=== PATIENT | female | born 1955 | race Caucasian/White ===

== ENCOUNTER 2019-12-14 07:55 | Outpatient (REF) | payer OTHER, SELFPAY ==
[2019-12-14 13:19] LABS: Chol HDL Ratio 3.84 mg/dL (0.0-4.40); Cholesterol 142 mg/dL (0-200); Glucose 199 mg/dL (65-115); HDL Cholesterol 37 mg/dL (60-100); LDL Cholesterol Calculated 86 mg/dL (50-129); LDL HDL Ratio 2.32 RATIO (0.00-3.22); Triglycerides 93 mg/dL (0-150)
[2019-12-14 13:46] LABS: Estmated Average Glucose 232; Hemoglobin A1C 9.7 % (4.0-6.0)
== END 2019-12-14 07:56 | disposition home or self-care (01) ==
LOC: LAB 07:55
PROVIDERS: Family Provider Family Medicine; Visit Provider Dermatology
DX: Z01.89 Encounter for other specified special examinations (principal)
CPT/HCPCS: 80061; 82947; 83036

== ENCOUNTER → 2022-05-02 16:58 | Outpatient (BNVA) | payer OTHER, SELFPAY | PROVIDERS: Family Provider Family Medicine; PCP Family Medicine; Visit Provider Registered Nurse Neonatal Intensive Care | DX: Z20.822 Contact with and (suspected) exposure to COVID-19 (principal) | CPT/HCPCS: 87635 ==

== ENCOUNTER 2022-07-20 07:40 | Outpatient (CLI) | payer SELFPAY ==
[2022-07-20 07:59] LABS: HF Add Manual Diff No
[2022-07-20 08:04] LABS: Eosinophils # 0.2 10^3/uL (0.0-0.8); Eosinophils % 4.6 %; Hematocrit 35.8 % (37.0-47.0); Lymphocytes # 0.9 10^3/uL (0.8-4.8); Lymphocytes % 22.4 %; Mean Corpuscular HGB Conc 33.5 g/dL (30.0-36.0); Mean Corpuscular Hemoglobin 31.6 pg (28.0-34.0); Mean Corpuscular Volume 94.2 fl (81-99); Mean Platelet Volume 11.5 fL (7.4-10.4); Monocytes # 0.3 10^3/uL (0.2-0.9); Monocytes % 7.7 %; Neutrophils # 2.48 10^3/uL (1.8-7.7); Nucleated Red Blood Cells % 0 %; Platelet Count 131 10^3/cmm (130-400); Red Cell Distribution Width 12.1 % (12.1-15.1); White Blood Count 3.9 10^3/uL (4.0-10.0)
[2022-07-20 08:21] LABS: Estmated Average Glucose 148; Hemoglobin A1C 6.8 % (4.0-6.0)
[2022-07-20 08:42] LABS: 25 Hydroxy Vitamin D 26 ng/mL (30-100); Alanine Aminotransferase 23 U/L (0-33); Alkaline Phosphatase 104 U/L (35-105); Anion Gap 16.2 (5-19); Aspartate Amino Transferase 25 U/L (0-32); Blood Urea Nitrogen 27 mg/dL (8-23); Calcium 9.8 mg/dL (8.5-10.5); Carbon Dioxide 20 mmol/L (22-29); Chloride 108 mmol/L (98-107); Chol HDL Ratio 2.81 mg/dL (0.0-4.40); Cholesterol 135 mg/dL (0-200); Globulin 2.4 g/dL (1.3-4.6); Glomerular Filtration Rate 71.5 mL/min (90-130); Glucose 141 mg/dL (65-115); HDL Cholesterol 48 mg/dL (60-100); LDL Cholesterol Calculated 69 mg/dL (50-129); LDL HDL Ratio 1.44 RATIO (0.00-3.22); Osmolality Calculated 297 mOsm/kg (285-295); Potassium 4.2 mmol/L (3.5-5.1); Sodium 140 mmol/L (136-145); Thyroid Stimulating Hormone 3.47 uIU/mL (0.27-4.20); Total Bilirubin 0.8 mg/dL (0.15-1.2); Total Protein 6.4 g/dL (6.6-8.7); Triglycerides 92 mg/dL (0-150)
== END 2022-07-20 07:41 | disposition home or self-care (01) ==
LOC: LAB 07:43
PROVIDERS: PCP Family Medicine; Visit Provider Dermatology
DX: Z01.89 Encounter for other specified special examinations (principal)
CPT/HCPCS: 36415

== ENCOUNTER 2025-03-07 14:17 | Outpatient (CLI) | payer MEDICARE, SELFPAY ==
--- NOTE | 2025-03-07 14:20 | MM_ITS ---
WS: [id number] BILATERAL 3D TOMOSYNTHESIS DIGITAL SCREENING MAMMOGRAPHY WITH CAD CLINICAL INFORMATION: SCREENING HISTORY: Screening mammogram. No current complaints. COMPARISON: 2017 TECHNIQUE: Bilateral CC and MLO views. FINDINGS: Scattered fibroglandular densities bilaterally. No suspicious focal mass, asymmetry, calcifications, or architectural distortion. No evidence of malignancy. Incidental intramammary lymph nodes. MM/MM scr tomosynthesis [id number] IMPRESSION: DENSITY: There are scattered areas of fibroglandular density. BI-RADS: 2 - Benign. FOLLOW UP: 1 Year Follow-up Recommend return to annual screening mammography.
== END 2025-03-07 14:18 | disposition home or self-care (01) ==
LOC: MOBLMAM 14:21
PROVIDERS: PCP Family Medicine; Visit Provider Family Medicine
DX: Z12.31 Encounter for screening mammogram for malignant neoplasm of breast (principal); R92.323 Mammographic fibroglandular density, bilateral breasts; R59.0 Localized enlarged lymph nodes
CPT/HCPCS: 77063; 77067